=== PATIENT | female | born 2000 | race Caucasian/White ===

== ENCOUNTER 2024-09-24 23:43 | Inpatient (IN) | payer SELFPAY ==
[2024-09-25] MEDS ORDERED: Glucagon 1 MG/ML KIT IM PRN (01:20)
[2024-09-25] MEDS ORDERED: Dextrose 5% in Water 1,000 ML IV PRN (01:20)
[2024-09-25] MEDS ORDERED: Dextrose 50% Abboject 50 ML SYRINGE SLOW IVP PRN (01:20)
[2024-09-25] MEDS ORDERED: Ondansetron ODT 4 MG TAB PO PRN (01:25)
[2024-09-25] MEDS: Lactated Ringer's 1,000 ML IV SCH (01:57)
[2024-09-25] MEDS: Morphine 4 MG/ML VIAL SLOW IVP PRN (01:58)
[2024-09-25 03:54] VITALS: BMI 38.4
[2024-09-25] MEDS: traMADol HCl 50 MG TAB PO PRN (05:30)
[2024-09-25 06:03] LABS: #Basophils 0.05 10x3/uL (0.0-0.2); %Basophils 0.5 % (0.0-1.0); %Eosinophils 0.9 % (0.0-10.0); %Monocytes 11.9 % (0.0-10.0); %Neutrophils 55.5 % (42.0-75.0); Hematocrit 38.7 % (36.0-47.0); Mean Platelet Volume 8.5 fL (7.4-10.4); Platelet Count 270 10x3/uL (130-400); RBC Distribution Width 14.4 % (11.5-14.5); Red Blood Cell (RBC) Count 4.45 mill/uL (4.20-5.40)
[2024-09-25 06:18] LABS: Anion Gap 11 mmol/L (10-20); BUN (Urea Nitrogen) 7 mg/dL (7.0-18.7); Calc. Creatinine Clearance 227 mL/min (70-130); Calcium 8.2 mg/dL (7.8-10.44); Carbon Dioxide 22 mmol/L (22-29); Chloride 111 mmol/L (98-107); Estimated GFR 124; Glucose 84 mg/dL (70-105); Potassium 3.2 mmol/L (3.5-5.1); Sodium 141 mmol/L (136-145)
[2024-09-25] MEDS ORDERED: CEFAZOLIN 2 GM in Sodium Chloride 0.9% 100 ML IVPB SCH (07:30)
[2024-09-25] MEDS: Senokot S 8.6-50 MG TAB PO SCH (08:27)
[2024-09-25] MEDS ORDERED: CEFAZOLIN 2 GM VIAL ONE (08:34)
[2024-09-25] MEDS ORDERED: PROPOFOL 20 ML ONE (09:13)
[2024-09-25] MEDS ORDERED: fentaNYL PF 100 MCG/2 ML SYRINGE ONE ×2 (09:14→10:27)
[2024-09-25] MEDS ORDERED: Midazolam HCl 2 mg/2 ml Vial ONE (09:15)
[2024-09-25] MEDS ORDERED: diphenhydrAMINE 50 MG/ML VIAL ONE (09:15)
[2024-09-25] MEDS ORDERED: Morphine 4 MG/ML VIAL ONE ×2 (09:16→12:27)
[2024-09-25] MEDS ORDERED: Rocuronium Bromide 10 MG/ML (10ML VIAL) ONE (09:19)
[2024-09-25] MEDS ORDERED: SUGAMMADEX SODIUM 200 MG/2 ML VIAL ONE (09:19)
[2024-09-25] MEDS ORDERED: Ketorolac Tromethamine 30 MG (1 mL) VIAL ONE ×2 (09:21→11:28)
[2024-09-25] MEDS ORDERED: Dexamethasone 4 mg/ml Vial ONE (10:38)
[2024-09-25] MEDS ORDERED: Metoclopramide HCl 10 MG (2 mL) VIAL ONE (10:38)
[2024-09-25] MEDS ORDERED: Ondansetron PF 4 MG/2 ML Vial ONE (10:38)
[2024-09-25] MEDS ORDERED: fentaNYL 50 mcg/mL 1 mL Vial ONE (12:40)
[2024-09-25] MEDS: CEFAZOLIN 2 GM in Sodium Chloride 0.9% 100 ML IVPB SCH (21:19)
[2024-09-25] MEDS: CEFAZOLIN 2 GM VIAL ONE (21:49)
[2024-09-25] MEDS: Acetaminophen 325 MG TAB PO PRN (22:08)
[2024-09-26 08:03] VITALS: TEMP 98.2
[2024-09-26 12:23] VITALS: BP 120/76
[2024-09-28] MEDS ORDERED: FLU (Fluarix Triv) TS24-25(6MOS UP)/PF 45 MCG/0.5 ML Syringe IM ONE (09:00)
== END 2024-09-26 14:09 | disposition home or self-care (01) | DRG 494 ==
LOC: SURG A 09-25 00:44
PROVIDERS: ADMIT Surgery; ATTEND Surgery
PROC: 0QSJ04Z Reposition Right Fibula with Internal Fixation Device, Open Approach (ICD-10-PCS; principal; 2024-09-25)
PROC: 0QSG04Z Reposition Right Tibia with Internal Fixation Device, Open Approach (ICD-10-PCS; 2024-09-25)
DX: S82.851A Displaced trimalleolar fracture of right lower leg, initial encounter for closed fracture (principal); W19.XXXA Unspecified fall, initial encounter; Z79.899 Other long term (current) drug therapy
CPT/HCPCS: 36415; 80048; 85025; C1713; J1100; J1200; J1885; J2250; J2272; J2405; J2704; J2765; J3010; J7120